=== PATIENT | male | born 2000 | race Caucasian/White ===

== ENCOUNTER 2023-11-29 12:33 | Emergency (ER) | payer OTHER ==
[2023-11-29 12:46] VITALS: BP 113/70; PULSE 82; RESP 20; BMI 23.3
[2023-11-29] MEDS ORDERED: KETOROLAC TROMETHAMINE 30 MG/1 ML VIAL ONE (13:04)
[2023-11-29] MEDS ORDERED: ONDANSETRON *ODT* 4 MG TABLET ONE (13:05)
[2023-11-29] MEDS ORDERED: ACETAMINOPHEN 500 MG TABLET (FP) ONE (13:05)
[2023-11-29] MEDS: ACETAMINOPHEN 500 MG TABLET (FP) PO ONE (13:11)
[2023-11-29] MEDS: KETOROLAC TROMETHAMINE 30 MG/1 ML VIAL IM ONE (13:11)
[2023-11-29] MEDS: ONDANSETRON *ODT* 4 MG TABLET SL ONE (13:11)
[2023-11-29 13:34] LABS: THROAT:GRP A STREP DETECTED (NOTDETECTED)
[2023-11-29] MEDS ORDERED: PENICILLIN G BENZATHINE 1,200,000 UNIT/2 ML PFS IM ONE (13:55)
[2023-11-29 14:00] VITALS: TEMP 100.1
[2023-11-29] MEDS: PENICILLIN G BENZATHINE 1,200,000 UNIT/2 ML PFS IM ONE (14:00)
== END 2023-11-29 14:04 | disposition home or self-care (01) ==
LOC: JERFT 12:33
PROC: 3E0133Z Introduction of Anti-inflammatory into Subcutaneous Tissue, Percutaneous Approach (ICD-10-PCS; principal; 2023-11-29)
PROC: 3E02329 Introduction of Other Anti-infective into Muscle, Percutaneous Approach (ICD-10-PCS; 2023-11-29)
DX: R50.9 Fever, unspecified (principal); J02.0 Streptococcal pharyngitis; R51.9 Headache, unspecified; R11.0 Nausea; Z20.822 Contact with and (suspected) exposure to COVID-19
CPT/HCPCS: 0241U-QW; 87651; 99284-25; Q0162